=== PATIENT | male | born 1990 | race Caucasian/White ===

== ENCOUNTER 2016-04-10 15:48 | Emergency (ER) | payer OTHER ==
[~2016-04-10] VITALS: Ht 170.2 cm; Wt 65.0 kg
[2016-04-10 16:11] VITALS: Ht 170.2 cm; Wt 65.0 kg
[2016-04-10 16:15] VITALS: BP 113/72; PULSE 93; RESP 20; TEMP 97.8
[2016-04-10] MEDS ORDERED: OXYC15TA PO (16:15)
--- NOTE | 2016-04-10 16:50 | ERD ---
ER Documentation Chief Complaint Date/Time DATE: 04/10/16 TIME: 16:46 Chief Complaint BIB [facility] FOR EVAL OF ACCIDENTAL OD ON OXYCODONE. PT GIVEN NARCAN IN FIELD. HPI 25-year-old man brought in by EMS for heroin overdose. He was altered at the scene and given inhaled naloxone with immediate improvement in his symptoms. He had no complaints of chest pain or shortness of breath he had strong pulses at the scene before and after treatment. Patient denied suicidal homicidal ideation. Patient was transported here without further complications. ROS All systems reviewed and are negative except as per history of present illness. Medications Home Meds Reported Medications Oxycodone Hcl* (IR) (Oxycodone Hcl*) 15 Mg Tablet, 15 MG PO BID Y for PAIN, TAB 04/10/16 Allergies Allergies: Coded Allergies: No Known Allergy (Unverified , 04/10/16) PMhx/Soc Drug abuse History of Surgery: No Anesthesia Reaction: No Hx Neurological Disorder: No Hx Respiratory Disorders: No Hx Cardiac Disorders: No Hx Psychiatric Problems: No Hx Alcohol Use: No Hx Substance Use: Yes (marijuanna) Hx Tobacco Use: Yes (1 pack a day) Smoking Status: Current every day smoker FmHx Family History: No diabetes Physical Exam Vitals Vital Signs Date Time Temp Pulse Resp B/P Pulse Ox O2 Delivery O2 Flow Rate FiO2 04/10/16 16:15 97.8 93 20 113/72 100 Room Air 04/10/16 16:11 97.8 84 20 125/79 100 Physical Exam GENERAL: Well-developed, well-nourished, well-hydrated, in no apparent distress , looks nontoxic in appearance HEENT: Moist mucous membranes, pink conjunctiva, no cervical spine tenderness or step-off deformities, no goiter, no jaundice or icterus, extraocular movements intact without pain. No submandibular induration, and no pharyngeal erythema NEURO: Alert and oriented 3, cranial nerves II through XII intact bilaterally, pupils equal round reactive to light, no focal deficits or facial asymmetry, sensation intact distally Strength 5/5 in upper and lower extremities bilaterally CARDIAC: Regular rate and rhythm, no murmurs rubs or gallops LUNGS: Clear bilaterally no wheezing crackles or stridor ABDOMEN: Soft nontender, no guarding, no rigidity, no rebound, no psoas sign no obturator sign. Normoactive bowel sounds SKIN: Warm and dry to touch, no abrasions, contusions, or hematomas, no lacerations, no ecchymosis, no target lesions, and without ulcers EXTREMITIES: No clubbing cyanosis or edema, calves are bilaterally symmetrical, no Homans sign, no popliteal cord sign. Distal pulses equal and bilateral PSYCH: Normal affect without agitation or irritability Procedures/MDM Patient was placed on chainstitch zipper setter rhythm strip revealed a sinus rhythm at about 80 bpm with upright P and T waves. Patient's physical examination was completely normal and he had no complaints. He was observed here for an hour and had no decreased mental status. His mental status and neurological exam are at baseline. Patient wanted no further intervention or evaluation. Differential diagnoses considered, included but not limited to acute coronary syndrome, pulmonary embolism, aortic dissection, abdominal aortic aneurysm, sepsis, stroke, meningitis, encephalitis, pneumonia, appendicitis, cholecystitis , bowel obstruction, pyelonephritis, nephrolithiasis, cystitis, as well as metabolic, hematologic, and electrolyte abnormalities. As well as abscess, cellulitis, fractures, and dislocations. Patient feels much better at this time, and vital signs are normal, symptoms have improved. I did give strict instructions to return to the ED if symptoms continue or worsen, patient will otherwise follow-up with primary care physician. Patient understood instructions and agreed to plan. Departure Diagnosis: Primary Impression: Opioid overdose Encounter type: initial encounter Injury intent: accidental or unintentional Qualified Code: T40.2X1A - Opioid overdose, accidental or unintentional, initial encounter Additional Impression: Normal exam Ruled Out: Drug overdose Condition: Good Patient Instructions: Drug Abuse, Overdose, Accidental (Adult), Overdose, Opiate BULMARO TATE MD Apr 10, 2016 16:50
== END 2016-04-10 16:50 | disposition home or self-care (01) ==
LOC: E/R 15:48
DX: T40.2X1A Poisoning by other opioids, accidental (unintentional), initial encounter (principal); F17.210 Nicotine dependence, cigarettes, uncomplicated
CPT/HCPCS: 99282